=== PATIENT | female | born 1935 ===

== ENCOUNTER 2022-12-08 05:38 | Day surgery (SDC) | payer OTHER ==
[2022-12-08] MEDS ORDERED: MACROBID 100 M100 MG PO (10:45)
[2022-12-08] MEDS ORDERED: TRAM1TAB98 PO (10:46)
== END 2022-12-08 16:00 | disposition home or self-care (01) ==
LOC: CIR.AMB 05:38
PROVIDERS: ATTEND Obstetrics & Gynecology Gynecology
DX: N81.10 Cystocele, unspecified (principal); I10 Essential (primary) hypertension; Z20.822 Contact with and (suspected) exposure to COVID-19